=== PATIENT | male | born 1985 | race Caucasian/White ===

== ENCOUNTER 2021-07-01 10:19 | Emergency (ER) | payer OTHER, SELFPAY ==
--- NOTE | ~2021-07-01 | XR_ITS ---
EXAMINATION: XR finger 3rd RT min 2V EXAM DATE: 07/01/2021 10:38 INDICATION: PAIN/swelling prox phalanx Rt 3rd finger; injury 2 days ago . TECHNIQUE: Right 3rd finger frontal, lateral and oblique projections obtained and reviewed. There is no prior study for comparison. FINDINGS: There are no acute right 3rd finger fractures or dislocations identified. There is no subc utaneous gas. The soft tissue is unremarkable. There are no radiopaque foreign bodies. IMPRESSION: 1. XR finger 3rd RT min 2V exam without acute osseous findings. Reviewed, dictated and finalized at location A. 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
[2021-07-01 10:24] VITALS: BP 139/83; PULSE 64; RESP 12; TEMP 36.2; O2SAT 100
--- NOTE | 2021-07-01 10:31 | ED.UPPEXIN ---
HPI - Extremity Injury (Upper) General Chief Complaint: Extremity Injury, Upper Stated Complaint: INJURED FINGER Time Seen by Provider: 07/01/21 10:31 Source: patient, RN notes reviewed and old records reviewed Mode of arrival: ambulatory Limitations: no limitations History of Present Illness HPI narrative: 35-year-old male patient [facility] with complaints of right hand and finger pain. 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 Had pain to his right third MCP joint. Slight swelling present. Reports redness at time of injury.. Has not applied ice or taken pain medicine. Reports increased pain with extension of fingers and gripping. Has been trying to rest hand. Continues to experience some discomfort with hand use. Denies other concerns. MD complaint: injury to: right and finger Related Data Home Medications Medication Instructions Recorded Confirmed hydroxyzine pamoate 50 mg capsule 50 mg PO Q6H PRN cap 04/05/21 04/05/21 propranolol 10 mg tablet 10 mg PO TID tablet 04/05/21 04/05/21 trazodone 50 mg tablet 50 mg PO QHS PRN tablet 04/05/21 04/05/21 Allergies Allergy/AdvReac Type Severity Reaction Status Date / Time No Known Allergies Allergy Verified 04/05/21 08:45 Review of Systems Review of Systems: CONSTITUTIONAL: Denies fever, chills, or sweats. EYES: Denies visual changes, redness, or discharge. ENT: Denies rhinorrhea, congestion, sore throat, or otalgia. CARDIOVASCULAR: Denies chest pain, palpitations, or edema. RESPIRATORY: Denies cough or dyspnea. GASTROINTESTINAL: Denies abdominal pain, nausea, vomiting, or diarrhea. GENITOURINARY: Denies dysuria or hematuria. SKIN: Denies rash or itching. MUSCULOSKELETAL: Denies back pain. Right third knuckle pain. Pain worse with the flexion and extension.. NEUROLOGIC: Denies headache, numbness, or weakness. PSYCHIATRIC: Denies anxiety or depression. All other systems reviewed are negative, except as documented in HPI. 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 There is no relevant family history pertinent to the patient complaint. Exam Narrative: GENERAL: This is a well-nourished, well-developed male, in no apparent distress. Pleasant cooperative. HEAD: normocephalic, atraumatic. EYES: Sclera clear/white. Vision is grossly intact. EARS: External ears normal, auditory canals clear and without drainage. Hearing grossly intact. THROAT: Mucous membranes moist. NECK: Neck supple, full range of motion. . CARDIOVASCULAR: Regular rate and rhythm without murmurs, gallops, or rubs. RESPIRATORY: Clear to auscultation anterior and posterior. Breath sounds equal bilaterally. No wheezes, rales, or rhonchi. GASTROINTESTINAL: Abdomen soft, non-tender, nondistended. Bowel sounds are active. SKIN: [place] warm, Dry, intact with no suspicious lesions or rash, good texture and turgor. NEURO: awake, alert,
== END 2021-07-01 11:00 | disposition home or self-care (01) ==
PROVIDERS: Emergency Provider Nurse Practitioner Family; PCP Family Medicine
DX: S60.221A Contusion of right hand, initial encounter (principal); W22.8XXA Striking against or struck by other objects, initial encounter; Y99.0 Civilian activity done for income or pay; I10 Essential (primary) hypertension
CPT/HCPCS: 73140; 99213; G0463

== ENCOUNTER 2024-12-05 16:42 | Emergency (ER) | payer OTHER, SELFPAY ==
--- OUTSIDE RECORDS SUMMARY | 2024-12-05 16:44 | XMS_ITS | Clinical Summary ---
Author Organization [facility] Address [address] [place] [address] Care Team Providers Care Hvac Manager Name Role Phone Jonathan Mendoza MD Primary Care Provider [phone] Source Comments [facility],non-owned Affiliates and Associated Physician Practices is amultiple site organization consisting of ambulatory clinics and hospital sitesin [place], [place], [place] and [place]. This disclosure is being madepursuant to the Care Everywhere program and may not contain all information available regarding this patient. Last updated 18.[employer] [facility] Allergies No known active allergies Medications * Be aware that medications may not be up to date on this document. Alwaysverify current medications with the patient. ibuprofen (MOTRIN) 800 MG tablet Take 1 Tab by mouth 3 times daily as needed for Pain 20 Tab 7 Active Additional Information Patient not taking.Reported on 03/03/2020 lisinopril (PRINIVIL; ZESTRIL) 10 MG tablet TK 1 T PO D 0 Active clonazePAM (KLONOPIN) 1 MG tablet TK 1 T PO BID 0 Active cyclobenzaprin e (FLEXERIL) 10 MG tablet Take 1 tablet by mouth 3 times daily as needed for Muscle Spasms In collaboration with Dr. 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 Gender Identity Not on file Sexual Orientation Not on file Last Filed Vital Signs Vital Sign Reading Time Taken Comments Blood Pressure 135/93 03/03/2020 12:25 PM CDT Pulse 96 03/03/2020 12:25 PM CDT Temperature 37 C (98.6 F) 03/03/2020 12:25 PM CDT Respiratory Rate 16 03/03/2020 12:25 PM CDT Oxygen Saturation 100% 03/03/2020 12:25 PM CDT Inhaled Oxygen Concentration - - Weight 68 kg (150 lb) 03/03/2020 12:25 PM CDT Height 190.5 cm (6' 3) 03/03/2020 12:25 PM CDT Body Mass Index 18.75 03/03/2020 12:25 PM CDT Plan of Treatment Health Maintenance Due Date Last Done Comments LIPID TESTING 1983 HIV SCREENING 10/28/1998 HEPATITIS C SCREENING 10/24/2001 DTAP/TDAP/TD VACCINES (1 - Tdap) 10/28/2002 HEPATITIS B VACCINE (1 of 3 - 19+ 3-dose series) 10/28/2002 HPV VACCINE (1 - 3-dose SCDM series) 10/28/2010 COVID-19 VACCINE ( - 2023-2 5 season) 2024 DEPRESSION SCREENING 05/05/2024 INFLUENZA VACCINE (#1) 2025 ZOSTER VACCINE (1 of 2) 10/28/2033 HIB VACCINE Aged Out No longer eligi ble based on patient's age to complete this topic MENINGOCOCCAL (Group B) VACC INE SHARED DECISION-MAKING Aged Out No longer eligibl e based on patient's age to complete this topic MENINGOCOCCAL GROUPS A/C/Y/W VACCINE Aged Out No longer eligible b ased on patient's age to complete this topic PNEUMOCOCCAL VACCINE Aged Out No long er eligible based on patient's age to complete this topic Insurance [employer] PAYOR GENERIC PAYOR GENERIC Care Teams Hvac Manager Relationship Specialty Start Date End Date Jonathan Mendoza MD [address] [place] [phone] PCP - General Family Medicine 01/31/17
--- OUTSIDE RECORDS SUMMARY | 2024-12-05 16:44 | XMS_ITS | Clinical Summary ---
Author Organization 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
--- OUTSIDE RECORDS SUMMARY | 2024-12-05 16:47 | XMS_ITS | Clinical Summary ---
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 Name Role Phone Unavailable Primary Care Provider Unavailabl e Social History Tobacco Use Types Packs/Day Years Used Date Smoking Tobacco: Never Assessed Sex and Gender Information Value Date Recorded Sex Assigned at Not on file Legal Sex Male 6:38 PM CDT Gender Identity Not on file Sexual Orientation Not on file Plan of Treatment Health Maintenance Due Date Last Done Comments Annual Physical 10/28/1986 Hepatitis C 10/28/2001 DTaP, Tdap and Td Vaccines ( 1 - Tdap) 10/28/2002 Hepatitis B Vaccines (1 of 3 - 19+ 3-dose series) 10/28/2002 HPV Vaccines (1 - 3-dose SCD M series) 10/28/2010 COVID-19 Vaccine ( - 2023-2 5 season) 2024 Meningococcal B Vaccine Aged Out No l onger eligible based on patient's age to complete this topic Meningococcal Vaccine Aged Out No lela rush eligible based on patient's age to complete this topic Pneumococcal Vaccine: Pediat rics (0 to 5 Years) and At-Risk Patients (6 to 49 Years) Aged Out No longer eligible b ased on patient's age to complete this topic RSV Immunizations Under 20 Months Aged Out No longer eligible based on patient's age to complete this topic
[2024-12-05 16:53] VITALS: BP 146/94; PULSE 70; RESP 18; TEMP 36.2; O2SAT 100
--- NOTE | 2024-12-05 17:03 | ED.SKABFB ---
HPI - Skin/Abscess/Foreign Bdy General Chief complaint: Skin/Abscess/Foreign Body Stated complaint: finger infection Time Seen by Provider: 12/05/24 16:44 patient presents to [facility] with complaints of swelling, redness, and pain around right middle finger nail that began over the last couple days. Patient noted removing a hangnail in this area prior to the starting. Patient has been applying ice to the area without relief of symptoms. Denies numbness tingling, or drainage the area. Related Data Allergies Allergy/AdvReac Type Severity Reaction Status Date / Time No Known Allergies Allergy Verified 12/05/24 16:53 Review of Systems Constitutional: Constitutional: Reports as per HPI, Denies chills, Denies fatigue, Denies fever(s) and Denies weakness Eyes: Eyes: Reports no additional eye complaints Cardiovascular: Cardiovascular: Reports no additional cardiovascular complaints Respiratory: Respiratory: Reports no additional respiratory complaints Gastrointestinal: Gastrointestinal: Reports no additional gastrointestinal complaints Genitourinary: Genitourinary: Reports no additional male genitourinary complaints Musculoskeletal: Musculoskeletal: Reports as per HPI, Reports arthralgias, Reports joint swelling and Denies muscle cramps Integumentary/Breasts: Skin/Breast: Reports as per HPI, Reports erythema, Denies rash and Denies skin ulcer Neurologic: Reports as per HPI, Denies numbness and Denies weakness Psychiatric: Psychiatric: Reports no additional psychiatric complaints Endocrine: Endocrine: Reports no additional endocrine complaints Hematologic/Lymphatic: Hematologic/Lymphatic: Reports no additional hematologic/lymphatic complaints Allergic/Immunologic: Allergic/Immunologic: Reports no additional allergic/immunologic complaints [facility] Past Medical History Medical History Thyroid cyst Surgical History Surgical History History of removal of cyst Family History Family History Father Hypertension Grandparent Cerebrovascular accident Carcinoma of colon Sibling Cancer Social History Social History (Updated 07/05/21 @ 16:33 by Zuri Zarate CMA) Smoking status: Current every day smoker Tobacco type: cigarettes Second hand tobacco smoke exposure: No Alcohol intake: former Drinks per week: 12 Alcohol use details: completed inpatient rehab Substance use type: does not use Living arrangements: with family Additional living arrangements comments: , 2 children Occupation/Education: occupation Additional occupation/education comments: [employer] Gender identity (if verbalized by the patient): Male Spiritual care concerns: Yes Agree to blood products: Yes Exam Const: General: healthy appearing and no acute distress Nutritional Appearance: well nourished Orientation/consciousness: patient oriented x3 Limitations: no limitations Resp: Effort & Inspection: normal respiratory effort Auscultation: clear to auscultation bilaterally Cardio: Rate: regular rate Rhythm: regular rhythm Skin: General skin exam: normal color Rashes: no rashes Wounds: wounds noted Other: Paronychia noted right middle finger. mild tenderness noted. No active drainage or crusting. Neuro: General: patient oriented x3 and moves all extremities Speech: normal speech Gait exam (Neuro): Normal gait present Extrem: Right upper extremity: Extremity exam: right hand ( Paronychia right middle finger) abnormal to inspection, tenderness, warmth and swelling; no ecchymosis Psych: Mental Status: mental status grossly normal Affect: normal affect Attitude: cooperative Course Course Level of Care: Express Care Visit Vital Signs Vital signs: Vital Signs Temperature 97.1 F L 12/05/24 16:53 Pulse Rate 70 12/05/24 16:53 Respiratory Rate 18 12/05/24 16:53 Blood Pressure 146/94 H 12/05/24 16:53 Pulse Oximetry 100 12/05/24 16:53 Oxygen Delivery Room Air 12/05/24 16:53 Temperature 97.1 F L 12/05/24 16:53 Pulse Rate 70 12/05/24 16:53 Respiratory Rate 18 12/05/24 16:53 Blood Pressure 146/94 H 12/05/24 16:53 Pulse Oximetry 100 12/05/24 16:53 Oxygen Delivery Room Air 12/05/24 16:53 Procedures Abscess I/D other: Date of Incision: 12/05/24 Time of Incision: 17:03 Side (if applicable): right Technique: other (incision with 25 g needle ) Amount of fluid expressed (mL): 0.5 Irrigation: No Packing used?: none I&D Results: Pus and Blood Abcess I&D Additional Comments: right middle finger paronychia MDM - Skin/Abscess/Foreign Bdy MDM Narrative Medical decision making narrative: I and D with minimal results. Will place on antibiotics. Discharge instructions reviewed with patient, as well as provided in writing per nursing staff. The instructions also include specific and strict return/GO TO THE ER as well as f/u information. All questions have been answered, and the patient deny any further questions with discharge and discharge plan. Differential Diagnosis Differential diagnosis: Likely abscess of skin or subcutaneous tissue, dermatophytosis, urticaria, cellulitis and contact dermatitis Medical Records Attestation: I reviewed the patient's medical records. Discharge Plan Discharge Clinical Impression: Paronychia of right middle finger Patient Disposition: Home Condition: Stable Instructions: Antibiotic Form, Paronychia (ED) Additional Instructions: Clean with soap and water only; Avoid using alcohol and peroxide. Elevate the affected area if possible Alternate Tylenol/ibuprofen for as needed for pain Acetaminophen(Tylenol) 650-1000mg every 4-6hours with max of 4000mg/day. Nonsteroidal anti-inflammatory agent (NSAIDs-ibuprofen): 400mg every 4-6hours with max 2400mg/day Take antibiotic until it's gone. Please schedule a follow up visit with your personal physician for further evaluation and treatment within 3-5days OR if your symptoms persist, change or worsen significantly before you can contact your personal physician then please, without delay, go to the emergency department for further evaluation. Patient Language: [place]se Prescriptions: New cephalexin 500 mg capsule 500 mg PO Q12H Qty: 14 0RF Follow-up/Referrals: Jonathan Mendoza MD [Primary Care Provider] - Time of Disposition: 17:06
== END 2024-12-05 17:08 | disposition home or self-care (01) ==
PROVIDERS: Emergency Provider Nurse Practitioner Family; PCP Family Medicine
DX: L03.011 Cellulitis of right finger (principal); F17.210 Nicotine dependence, cigarettes, uncomplicated
CPT/HCPCS: 10060; 99213; G0463